=== PATIENT | female | born 1955 | race American Indian/Alaskan Native ===

== ENCOUNTER 2016-08-23 13:23 | Outpatient (CLI) | payer OTHER ==
[2016-08-23 15:31] LABS: Anion Gap 21 mmol/L; BUN/Creatinine Ratio 8.75; Blood Urea Nitrogen 7 mg/dL (7-17); Calcium 9.6 mg/dL (8.4-10.2); Carbon Dioxide 22 mmol/L (22-30); Chloride 105.7 mmol/L (98-107); Glucose 104 mg/dL (65-100); Potassium 4.7 mmol/L (3.6-5.0); Sodium 144 mmol/L (137-145)
== END 2016-08-23 13:24 | disposition home or self-care (01) ==
LOC: LAB 13:23
PROVIDERS: ATTEND Internal Medicine Nephrology
DX: N18.1 Chronic kidney disease, stage 1 (principal); N20.0 Calculus of kidney; E87.2 Acidosis; E87.5 Hyperkalemia; R31.9 Hematuria, unspecified; D86.9 Sarcoidosis, unspecified
CPT/HCPCS: 36415; 80048; 82040; 82570; 84100; 84156

== ENCOUNTER 2016-08-24 14:09 | Outpatient (CLI) | payer OTHER, BC ==
--- NOTE | 2016-08-25 09:45 | Cat Scan Report ---
CT of the abdomen and pelvis without contrast. History: Renal stone. Findings: The liver, spleen, and pancreas are normal. The gallbladder is unremarkable. The kidneys are normal in size. There are multiple bilateral parapelvic cysts. No renal stones identified on today's study. There no ureteral stones or dilatation. Numerous phleboliths are seen in the pelvis. Impression: Multiple bilateral parapelvic renal cysts. There is no evidence of renal stone or hydronephrosis.
== END 2016-08-24 14:10 | disposition home or self-care (01) ==
LOC: CT 14:09
PROVIDERS: ATTEND Internal Medicine
DX: N28.1 Cyst of kidney, acquired (principal); I87.8 Other specified disorders of veins; M54.9 Dorsalgia, unspecified
CPT/HCPCS: 74176

== ENCOUNTER 2021-01-28 08:29 | Outpatient (CLI) | payer OTHER ==
[2021-01-28 09:07] LABS: Albumin 4.1 g/dL (3.9-5); BUN/Creatinine Ratio 15; Blood Urea Nitrogen 12 mg/dL (7-17); Calcium 9.5 mg/dL (8.4-10.2); Hemolysis Index 6
== END 2021-01-28 08:30 | disposition home or self-care (01) ==
LOC: LAB 08:29
PROVIDERS: ATTEND Internal Medicine Nephrology
DX: N18.1 Chronic kidney disease, stage 1 (principal)
CPT/HCPCS: 36415; 80048; 82040; 82306; 84100